=== PATIENT | female | born 1950 | race African-American/Black ===

== ENCOUNTER 2024-02-08 13:43 | Emergency (ER) | payer OTHER ==
[~2024-02-08] VITALS: Ht 167.6 cm; Wt 65.0 kg
[2024-02-08 13:45] VITALS: O2SAT 99
[2024-02-08] MEDS: ONDANSETRON HCL 4MG/2ML INJ IV STA (14:13)
[2024-02-08] MEDS: MORPHINE SULFATE 4 MG/ML INJ (FOR IV/IM USE) IV STA (14:13)
[2024-02-08] MEDS: SODIUM CHLORIDE 0.9% 1,000 ML IV ONE (14:15)
[2024-02-08 14:51] LABS: BASOPHILS % 0.2 % (0.0-2.0); EOSINOPHILS % 0.1 % (0.0-5.0); HEMOGLOBIN. 11.9 g/dL (12.0-16.0); MEAN CORPUSCULAR HEMOGLOBIN 30.3 pg (28.0-32.0); MEAN CORPUSCULAR VOLUME 91.9 fL (81.0-99.0); MEAN PLATELET VOLUME 7.7 fl (7.4-10.4); MONOCYTES % 4.8 % (2.0-8.0); NEUTROPHILS % 76.9 % (40.0-76.0); PLATELET 234 x1000/uL (130-400); RED BLOOD CELL COUNT 3.92 mill/uL (4.2-5.4); RED CELL DISTRIBUTION WIDTH 12.8 % (11.6-14.6); WHITE BLOOD COUNT 9.9 x1000/uL (4.5-11.0)
[2024-02-08 14:54] LABS: CHLORIDE 111 mEq/L (98-107); POTASSIUM 4.2 mEq/L (3.5-5.1); SODIUM 140 mEq/L (136-145)
[2024-02-08 14:55] LABS: CALCIUM 8.8 mg/dL (8.7-10.4); CARBON DIOXIDE 27 mEq/L (21-32)
[2024-02-08 15:00] LABS: CREATININE 1.1 mg/dL (0.6-1.0); GLUCOSE 109 mg/dL (70-105); PROTHROMBIN TIME 10.7 sec (9.6-11.0); UREA NITROGEN BLOOD 17 mg/dL (9-23)
[2024-02-08 15:01] LABS: LACTATE DEHYDROGENASE 145 IU/L (120-246)
[2024-02-08 15:02] LABS: ALANINE AMINOTRANSFERASE 37 IU/L (10-49); ALBUMIN 3.8 g/dL (3.2-4.8); ASPARTATE AMINOTRANSFERASE 34 IU/L (<34); BILIRUBIN TOTAL 0.4 mg/dL (0.1-1.0); PROTEIN TOTAL 6.2 g/dL (6.0-8.3)
[2024-02-08 15:14] LABS: BILIRUBIN DIRECT < 0.1 mg/dL (<=3.0); TROPONIN I HIGH SENSITIVITY < 4 ng/L (3.0-34)
[2024-02-08] MEDS: KETOROLAC 30MG/ML VIAL IV ONE (15:39)
[2024-02-08] MEDS: ONDANSETRON HCL 4MG/2ML INJ IV ONE (16:43)
[2024-02-08 17:05] LABS: CLARITY URINE CLEAR (CLEAR); COLOR URINE YELLOW (YELLOW); GLUCOSE URINE NEGATIVE (NEGATIVE); KETONES URINE TRACE (NEGATIVE); LEUKOCYTE ESTERASE URINE 2+ (NEGATIVE); NITRITE URINE NEGATIVE (NEGATIVE); OCCULT BLOOD URINE NEGATIVE (NEGATIVE); PH URINE 8.5 (4.5-8.0); PROTEIN URINE NEGATIVE (NEGATIVE); SPECIFIC GRAVITY URINE 1.013 (1.005-1.030); UROBILINOGEN URINE 0.2 E.U./dL (0.2-1.0)
[2024-02-08 17:13] LABS: TROPONIN I HIGH SENSITIVITY < 4 ng/L (3.0-34)
[2024-02-08 17:14] LABS: BACTERIA URINE 1+; SQUAMOUS EPITHELIAL CELL URINE 1+ /lpf (RARE/1+); YEAST URINE NONE SEEN
[2024-02-08] MEDS ORDERED: CEFP200T14 MT (17:19)
[2024-02-08 17:44] VITALS: BP 110/70; PULSE 70; RESP 15; TEMP 37.00296; O2SAT 99
== END 2024-02-08 18:08 | disposition home or self-care (01) ==
LOC: ER 13:56
DX: K80.20 Calculus of gallbladder without cholecystitis without obstruction (principal); N39.0 Urinary tract infection, site not specified; I10 Essential (primary) hypertension
CPT/HCPCS: 99285; 70450; 96374; 96361; 71045; 96375; 80076; 80048; 81003; 83605; 83615; 83690; 85025; 85610; 87040; 87086; 36415; 84484; 84145; 74176; 93005; J1885; J2405; J7030